=== PATIENT | male | born 1985 | race African-American/Black ===

== ENCOUNTER 2020-10-28 21:11 | Emergency (ER) | payer SELFPAY ==
[2020-10-28] MEDS ORDERED: Acetaminophen 500 MG TAB ONE (21:48)
== END 2020-10-28 21:58 | disposition home or self-care (01) ==
LOC: ERS 21:11
DX: S01.112A Laceration without foreign body of left eyelid and periocular area, initial encounter (principal); W22.8XXA Striking against or struck by other objects, initial encounter
CPT/HCPCS: 99281